=== PATIENT | female | born 1975 | race Caucasian/White ===

== ENCOUNTER 2023-05-18 19:55 | Emergency (ER) | payer MEDICARE, SELFPAY ==
[2023-05-18 19:57] VITALS: BP 166/110
[2023-05-18] MEDS: PERCOCET 5/325 2 TABLET PO (21:22)
--- NOTE | 2023-05-18 22:56 | ED.GENMED ---
History of Present Illness
General
Chief Complaint: Skin Problem
Source: patient
Exam Limitations: none
Time Seen by Provider: 05/18/23 20:50
Nursing documentation reviewed up to this point in time: agreed with
Travel History
Have you had any contact with someone who has COVID-19?: No
Do you have any symptoms of coronavirus? Fever > 100 degrees, chills, cough, shortness of breath, sore throat, loss of taste or smell, muscle aches, or headache?: No
History of Present Illness
History of Present Illness:
47-year-old female with past medical history of hypertension ADHD presenting to the emergency department today with concerns of a lump on her left upper back worsening over the past few days has been present for 20 years but the redness swelling and
discomfort have been over the past few days. Denies any systemic symptoms or fevers.
Past History
Past History
ED Past Medical History: None
Social History
Tobacco: Smoker
Drug: None
Review of Systems
Review of Systems
Allergies reviewed?: Yes
All Other Systems: ROS reviewed and negative except as documented in HPI and ROS
Phy Exam
Physical Exam
Physical Exam:
GENERAL: Alert , in no apparent distress
EYE: pupils equal and reactive
NECK: Supple, no significant adenopathy.
ENT: o/p clr, mmm.
CARDIAC: Regular rate and rhythm .
LUNGS: Clear breath sounds bilaterally, no acute respiratory distress, no wheezes/rales/rhonchi
ABDOMEN: Soft, without focal tenderness, no r/g, no cvat
NEUROLOGICAL: Alert and oriented, no focal neuro deficits
SKIN: 3 cm area of fluctuance and induration to the left upper back. Warm and dry, skin intact.
MUSCULOSKELETAL: No edema, well perfused.
PSYCH: Normal and appropriate interaction.
Course
Orders/Labs/Results
Orders:
Orders
05/18/23 21:14
Oxycodone/Acetaminophen [Percocet 5/325] 2 tablet PO NOW STA
Vital Signs
Initial and Last Documented VS:
Initial Vital Signs
Temp Pulse Resp BP Pulse Ox
98.0 F 68 18 166/110 99
05/18/23 19:57 05/18/23 19:57 05/18/23 19:57 05/18/23 19:57 05/18/23 19:57
Last Documented Vital Signs
Temp Pulse Resp BP Pulse Ox
98.0 F 68 18 166/110 99
05/18/23 19:57 05/18/23 19:57 05/18/23 19:57 05/18/23 19:57 05/18/23 19:57
Procedures
Incision/Drainage/Joint Aspiration
Left Upper Back:
Anethesia: 1% Lidocaine with Epi
Preparation: cleaned with alcohol wipe
Type of procedure: incise and drain
Nature of site: cyst
Description of abscess: greater than 3cm
Loculations broken up: Yes
How much fluid was obtained?: large amount
Fluid description: purulent (Mixed with keratinous material)
Treatment: left open for drainage
MDM/Problems Addressed
MDM/Problems Addressed:
47-year-old female presenting to the emergency department today with concerns of an infected cyst to left upper back. This was drained with a moderate amount of purulent material. Patient was started on Bactrim otherwise stable for outpatient
management no systemic symptoms. Return precautions given.
*Critical Care Note
Total Time (30-74mins, 75-104mins- exclusive of procedures): Not Applicable
ED Attending Note
-
Portions of this chart may have been created with voice recognition software.� Occasional wrong word or��sound alike� substitutions may have occurred due to the inherent limitations of voice recognition software.
Discharge Plan
Departure
Patient Disposition: Home (Routine Discharge)
Date of Disposition: 05/18/23
Time of Disposition: 23:16
Patient with high blood pressure during this ER visit?: No
Condition: Good
Covid-19: Not Applicable
Discharge Problem:
Infected cyst of skin
Instructions: Skin Abscess
Prescriptions:
New
sulfamethoxazole-trimethoprim [Bactrim DS] 800-160 mg tablet
2 tab PO BID 5 Days Qty: 20 0RF
No Action
dextroamphetamine-amphetamine [Adderall XR] 20 MG capsule,extended release 24hr
20 mg PO DAILY
dextroamphetamine-amphetamine [Adderall] 20 MG tablet
20 mg PO DAILY
ciprofloxacin HCl 500 MG tablet
500 mg PO BID Qty: 14 0RF
prednisone 10 MG tablet
10 mg PO .TAPER Qty: 30 0RF
Rx Instructions:
Take 40mg daily x3days, 30mg daily x3days,
20mg daily x3days, 10mg daily x3days.
ondansetron 4 MG tablet,disintegrating
4 mg PO TIDPRN PRN (Reason: vomiting) Qty: 10 0RF
Referrals:
NONE,* [Family Provider] -
Fredy Rodriguez MD [Active] - Follow up in 5-7 days
Activity Restrictions/Additional Instructions:
You came to the emergency department today with concerns of an infected cyst to your left upper back. This was drained here with a large amount of pus and additional material being removed. Please keep the area clean covered and take Bactrim 2
pills twice daily for the next 5 days and follow-up closely with surgery or dermatology for definitive cyst removal. Return to the emergency department for any worsening, new or concerning symptoms.
Interventions
Interventions:
*Risk Screen - Suicide Last Done: 05/18/23 23:02
*General Assessment Last Done: 05/18/23 23:02
*Neglect/Abuse Screening Last Done: 05/18/23 23:02
ED- Fall Risk Assessment Last Done: 05/18/23 23:02
*ED COVID-19 Vaccine History Last Done: 05/18/23 23:02
ED-Skin Assessment Last Done: 05/18/23 21:27
[2023-05-18] MEDS: BACTRIM DS 800 MG/160 MG 2 TABLET PO (23:20)
== END 2023-05-18 23:23 | disposition home or self-care (01) ==
LOC: EMR 19:55
PROVIDERS: EMERGENCY PHYSICIAN Student in an Organized Health Care Education/Training Program
DX: L08.9 Local infection of the skin and subcutaneous tissue, unspecified (principal); L72.9 Follicular cyst of the skin and subcutaneous tissue, unspecified; I10 Essential (primary) hypertension; F90.9 Attention-deficit hyperactivity disorder, unspecified type; F17.200 Nicotine dependence, unspecified, uncomplicated
CPT/HCPCS: 99282; 10060

== ENCOUNTER 2023-08-19 20:01 | Emergency (ER) | payer MEDICARE, SELFPAY ==
[2023-08-19 20:05] VITALS: BP 155/100
[2023-08-19 20:21] LABS: % Basophils 0.4 % (0-2); % Eosinophils 1.6 % (0-6); % Immature Granulocytes 0.3 % (0-0.5); % Lymphocytes 23.3 % (20.5-51.1); % Monocytes 7.5 % (1.7-9.3); % Neutrophils 66.9 % (42.2-75.2); Absolute Basophils 0.1 10^3/uL (0-0.2); Absolute Eosinophils 0.2 10^3/uL (0-0.7); Absolute Lymphocytes 2.8 10^3/uL (1.2-3.4); Absolute Monocytes 0.9 10^3/uL (0.1-0.6); Hematocrit 39.3 % (37.0-47.0); Hemoglobin 12.7 g/dL (12.0-16.0); Mean Corp Hgb Conc. 32.3 g/dL (33.0-37.0); Mean Corpuscular Hgb 30.1 pg (27.0-31.0); Mean Corpuscular Volume 93.1 fL (81.0-99.0); Nucleated Red Blood Cells % 0 %; Platelet Count 313 10^3/uL (130-400); Red Blood Cell Count 4.22 10^6/uL (4.20-5.40); Red Cell Dist. Width 13.3 % (11.5-14.5)
[2023-08-19 20:42] LABS: ALT (SGPT) 12 U/L (0-35); AST (SGOT) 18 U/L (14-36); Albumin 3.7 g/dl (3.5-5.0); Alkaline Phosphatase 92 U/L (38-126); Blood Urea Nitrogen 14 mg/dl (7-17); Calcium 8.9 mg/dl (8.4-10.2); Carbon Dioxide 29 mmol/L (22-30); Chloride 105 mmol/L (98-107); Glucose 127 mg/dl (70-99); Potassium 4.5 mmol/L (3.5-5.1); Sodium 139 mmol/L (135-145); Total Bilirubin 0.4 mg/dl (0.2-1.3); eGFR > 60.00
[2023-08-19 20:46] LABS: Troponin I < 0.012 ng/ml
--- NOTE | 2023-08-19 21:30 | ED.GENMED ---
History of Present Illness
General
Chief Complaint: Blood Pressure Problem
Source: patient
Exam Limitations: none
Time Seen by Provider: 08/19/23 21:03
Travel History
Have you had any contact with someone who has COVID-19?: No
Do you have any symptoms of coronavirus? Fever > 100 degrees, chills, cough, shortness of breath, sore throat, loss of taste or smell, muscle aches, or headache?: No
History of Present Illness
History of Present Illness:
This is a 47 year old female that comes in with c/o SOB and hypertension. State that she feels like she can't get enough air in. States that they then checked her BP at home and at first it was 181/110 and then later it was 197/122. States that she
was sweating. States that she was told once that she had the starting of COPD but she did not believe them. Denies any fever, chills, chest pain, abd pain, nausea, vomiting, diarrhea, headache, dizziness, urinary burning.
Past History
Past History
ED Past Medical History: HTN and Other (UTI, ADHD, Kidney stones)
ED Past Surgical History: Cholecystectomy, Gynecological (Tubal, Breast implants) and Other (Left arm surgery)
Social History
Tobacco: Former smoker
Alcohol: None
Drug: None
Personal: Single
Living: with family
Review of Systems
Review of Systems
All Other Systems: ROS reviewed and negative except as documented in HPI and ROS
Constitutional: Reports other (Sweating ); Denies fever or chills
EENT: Reports no symptoms
Respiratory: Reports trouble breathing; Denies cough
Cardiac: Reports no symptoms; Denies chest pain
ABD/GI: Reports no symptoms; Denies abdominal pain, nausea, vomiting or diarrhea
: Reports no symptoms; Denies dysuria, frequency or urgency
Musculoskeletal: Reports no symptoms
Skin: Reports no symptoms
Neurological: Reports no symptoms; Denies dizzy or headache
Psychiatric: Reports no symptoms
Phy Exam
General Physical Exam
General Presentation: well appearing and no apparent distress
General age: appears stated age
General Skin: warm and dry
General Habitus: normal
General Mental: alert
General Hydration: appears well hydrated
ENT Exam
ENT Exam: TM's normal, pharynx normal and neck supple
Eye Exam
Eye Exam: EOMI
Cardiovascular Exam
Cardiovascular Exam: regular rate/rhythm, no edema, no murmur and normal peripheral pulses
Pulmonary Exam
Pulmonary Exam: lungs clear, no respiratory distress, no rales, chest non tender, no crackles, no rhonchi, no wheezing and no cough
Gastrointestinal Exam
Gastrointestinal Exam: normal bowel sounds, non tender, soft, no organomegaly, no pulsatile mass and non distended
Musculoskeletal Exam
Musculoskeletal Exam: full ROM and no edema
Skin Exam
Skin Exam: normal color, warm/dry, no rash and no petechia
Psychiatric Exam
Psychiatric Exam: normal mood/affect
Course
Orders/Labs/Results
Orders:
Orders
08/19/23 20:02
EKG [Electrocardiogram (*1)] Urgent
Reason for Study: Chest Pain
Electrocardiogram (*1) Urgent
Reason for Study: Chest Pain
EKG- Treatment ONCE
EKG- Treatment ONCE
08/19/23 20:15
CMP [Comprehensive Metabolic Panel] Urgent
Complete Blood Count/With Diff Urgent
Troponin I Urgent
08/19/23 21:29
Lisinopril [Zestril] 10 mg PO NOW STA
CR Chest - 2 Views Urgent
Comment:
Reason For Exam: SOB
08/19/23 21:31
Ipratropium/Albuterol Sulfate [Duoneb] 3 ml INH R NOW ONE
08/19/23 21:52
D-Dimer Urgent
Abnormal Lab Results
08/19/23
20:15
WBC 12.0 H 10^3/uL
(4.8-10.8)
MCHC 32.3 L g/dL
(33.0-37.0)
MPV 11.0 H fL
(7.4-10.4)
Absolute Neuts (auto) 8.0 H 10^3/uL
(1.4-6.5)
Absolute Monos (auto) 0.9 H 10^3/uL
(0.1-0.6)
Glucose 127 H mg/dl
(70-99)
08/19/23 20:15
08/19/23 20:15
Leukocytosis, Glucose nonfasting. Troponin <0.012, D-dimer 0.35
Vital Signs
Initial and Last Documented VS:
Initial Vital Signs
Temp Pulse Resp BP Pulse Ox
98.1 F 98 22 155/100 98
08/19/23 20:05 08/19/23 20:05 08/19/23 20:05 08/19/23 20:05 08/19/23 20:05
Last Documented Vital Signs
Temp Pulse Resp BP Pulse Ox
98.1 F 98 22 153/102 98
08/19/23 20:05 08/19/23 20:05 08/19/23 20:05 08/19/23 21:45 08/19/23 20:05
MDM/Problems Addressed
Differential Diagnosis Includes:
Hypertension,
MDM/Problems Addressed:
This is a 47 year old female that comes in with c/o hypertension and feeling like she can't take a deep breath or get enough air in.
Will get labs, chest X-ray, Give Duo neb
Back into see patient. Patient state that she is feeling much better. Will place patient on Lisinopril for her BP and explained that she needs to get a family doctor. Will also give patient a prescription for albuterol inhaler to help with the chest
tightness. Explained that she may have the starting of COPD. Patient to follow up . Patient to return with any concerns.
Chronic conditions affecting care: HTN
Acute Exacerbation and/or Progression of Chronic Illness: HTN
*Radiology
Radiology exam reviewed: radiology read reviewed (Chest-Unremarkable exam)
*Pulse Oximetry
Patient hypoxic: no
*EKG
Interpreted by ED Provider?: Yes
Heart Rate: 92
Rate: normal
Rhythm: sinus
Helotes: normal axis
Interval: normal interval
QRS Pattern: normal QRS
Ischemia: no ischemia
*Keg Raiser Interpretation
Rate: normal
Heart Rate: 70
Rhythm: sinus
*Critical Care Note
Total Time (30-74mins, 75-104mins- exclusive of procedures): Not Applicable
ED Attending Note
-
Portions of this chart may have been created with voice recognition software.� Occasional wrong word or��sound alike� substitutions may have occurred due to the inherent limitations of voice recognition software.
Discharge Plan
Departure
Patient Disposition: Home (Routine Discharge)
Date of Disposition: 08/19/23
Time of Disposition: 22:48
Patient with high blood pressure during this ER visit?: Yes
Condition: Good
Covid-19: Not Applicable
Discharge Problem:
Hypertension, SOB (shortness of breath)
Instructions: Shortness of Breath (Dyspnea) (DC), BLOOD PRESSURE
Prescriptions:
New
lisinopril 10 mg tablet
10 mg PO DAILY Qty: 30 0RF
albuterol sulfate 90 mcg/actuation HFA aerosol inhaler
2 puff inhalation Q6H PRN (Reason: shortness of breath or wheezing) Qty: 6.7 0RF
No Action
dextroamphetamine-amphetamine [Adderall XR] 20 MG capsule,extended release 24hr
20 mg PO DAILY
dextroamphetamine-amphetamine [Adderall] 20 MG tablet
20 mg PO DAILY
ciprofloxacin HCl 500 MG tablet
500 mg PO BID Qty: 14 0RF
prednisone 10 MG tablet
10 mg PO .TAPER Qty: 30 0RF
Rx Instructions:
Take 40mg daily x3days, 30mg daily x3days,
20mg daily x3days, 10mg daily x3days.
ondansetron 4 MG tablet,disintegrating
4 mg PO TIDPRN PRN (Reason: vomiting) Qty: 10 0RF
sulfamethoxazole-trimethoprim [Bactrim DS] 800-160 mg tablet
2 tab PO BID 5 Days Qty: 20 0RF
Referrals:
UNKNOWN - PT DOES,NOT KNOW [Family Provider] -
Activity Restrictions/Additional Instructions:
As discussed, your blood work shows that your WBC are slightly elevated. This can go along with stress or a viral illness. Your Chest x-ray is negative for any acute process. You have had 2 prescriptions sent to your Pharmacy. The first is
Lisinopril to help control your blood pressure. Please take as directed. The second is an albuterol inhaler to help with any chest tightness or wheezing. YOU NEED TO GET A FAMILY DOCTOR. Please increase your water intake to 8-8oz glasses daily. IF
YOU HAVE INCREASED SHORTNESS OF BREATH, OR YOU HAVE ANY CONCERNS PLEASE RETURN TO THE EMERGENCY ROOM.
Interventions
Interventions:
*Risk Screen - Suicide Last Done: 08/19/23 20:05
*Neglect/Abuse Screening Last Done: 08/19/23 20:05
Discharge Date and Time
Print Language: TELUGU
[2023-08-19] MEDS: DUONEB 3 ML INH (21:45)
[2023-08-19] MEDS: ZESTRIL 10 MG PO (21:45)
[2023-08-19 22:14] LABS: D-Dimer 0.35 ug/mlFEU (0.00-0.50)
== END 2023-08-19 23:19 | disposition home or self-care (01) ==
LOC: EMR 20:01
PROVIDERS: Clinical Nurse Specialist Family Health; Emergency Medicine; EMERGENCY PHYSICIAN Student in an Organized Health Care Education/Training Program
DX: I10 Essential (primary) hypertension (principal); R06.02 Shortness of breath; R61 Generalized hyperhidrosis; R07.89 Other chest pain; F90.9 Attention-deficit hyperactivity disorder, unspecified type; Z87.891 Personal history of nicotine dependence; Z87.440 Personal history of urinary (tract) infections; Z87.442 Personal history of urinary calculi; Z90.49 Acquired absence of other specified parts of digestive tract; Z88.1 Allergy status to other antibiotic agents
CPT/HCPCS: 99283; 94640; 71046; 80053; 84484; 85025; 85379; 93005

== ENCOUNTER 2024-12-28 09:34 | Emergency (ER) | payer MEDICARE, SELFPAY ==
[2024-12-28 09:35] VITALS: BP 147/97
[2024-12-28 11:12] VITALS: BP 146/89
[2024-12-28] MEDS: NSS 1000 IV (11:29)
--- NOTE | 2024-12-28 11:40 | ED.GENMED ---
History of Present Illness
General
Chief Complaint: Abdominal Symptoms
Source: patient
Time Seen by Provider: 12/28/24 11:32
History of Present Illness
History of Present Illness:
49-year-old female with past medical history of hypertension presenting to the emergency department for evaluation of nausea and vomiting that started overnight, subsequently developed mild headache, unable to keep anything down other than some
small amounts of fluid. 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 She denies any fevers, chills, rigors, no recent antibiotics. No other symptoms presently.
She did not take anything for her symptoms prior to arrival.
Past History
Past History
ED Past Medical History: HTN and Other (UTI, ADHD, Kidney stones)
ED Past Surgical History: Cholecystectomy, Gynecological (Tubal, Breast implants) and Other (Left arm surgery)
Social History
Tobacco: Vaping
Alcohol: None
Drug: None
Personal: Single
Living: with family
Review of Systems
Review of Systems
All Other Systems: ROS reviewed and negative except as documented in HPI and ROS
Phy Exam
Physical Exam
Physical Exam:
GENERAL: Alert , in no apparent distress
EYE: clear conjunctiva b/l
HEAD: NCAT
ENT: mmm.
CARDIAC: Regular rate and rhythm .
LUNGS: Clear breath sounds bilaterally, no acute respiratory distress, no wheezes/rales/rhonchi
ABDOMEN: Soft, without focal tenderness, no r/g, no cvat
NEUROLOGICAL: Alert and oriented
SKIN: Warm and dry, skin intact.
MUSCULOSKELETAL: well perfused.
PSYCH: Normal and appropriate interaction.
Scores
Heart Failure Risk
Heart Failure Risk Score: Not Applicable
Heart Score for Chest Pain Patients
STEMI patient?: Not applicable
Withdrawal Assessment of Alcohol
Withdrawal Assessment Completed?: Not applicable
Course
Orders/Labs/Results
Orders:
Orders
12/28/24 11:26
Test Result ONCE
12/28/24 11:27
Complete Blood Count/With Diff Urgent
Comprehensive Metabolic Panel Urgent
HCG, Serum Qualitative Screen Urgent
Lipase Urgent
12/28/24 11:28
0.9% Sodium Chloride 1000 ml [Nss] 1,000 ml IV BOLUS
12/28/24 11:35
Ketorolac [Toradol] 30 mg IV NOW STA
Ondansetron Injectable [Zofran] 4 mg IV NOW STA
Abnormal Lab Results
12/28/24
11:27
MPV 11.4 H fL
(7.4-10.4)
Absolute Neuts (auto) 7.9 H 10^3/uL
(1.4-6.5)
Absolute Lymphs (auto) 0.7 L 10^3/uL
(1.2-3.4)
Neutrophils % 86.2 H %
(42.2-75.2)
Lymphocytes % 7.5 L %
(20.5-51.1)
12/28/24 11:27
12/28/24 11:27
Vital Signs
Initial and Last Documented VS:
Initial Vital Signs
Temp Pulse Resp BP Pulse Ox
99.0 F 95 18 147/97 100
12/28/24 09:35 12/28/24 09:35 12/28/24 09:35 12/28/24 09:35 12/28/24 09:35
Last Documented Vital Signs
Temp Pulse Resp BP Pulse Ox
99.0 F 80 18 146/89 100
12/28/24 09:35 12/28/24 11:12 12/28/24 11:12 12/28/24 11:12 12/28/24 11:45
MDM/Problems Addressed
Differential Diagnosis Includes:
Gastroenteritis
GERD
Gastritis
Peptic ulcer disease
Dehydration
MDM/Problems Addressed:
49-year-old female presenting to the emergency department for evaluation of nausea and vomiting over the last 12 hours, difficult time keeping solids and liquids down. No fevers but known sick contacts with similar symptoms within the week.
Suspect gastroenteritis is most likely diagnosis. Labs initiated. Will treat with fluids, Zofran and Toradol. Reassessment following.
*Pulse Oximetry
SaO2: 100
Oxygen Mode of Delivery: Room air
Patient hypoxic: no
*Critical Care Note
Total Time (30-74mins, 75-104mins- exclusive of procedures): Not Applicable
Patient Management
Escalation/DeEscalation of care consider admission/obs:
Patient feeling better following IV medications. Stable for discharge home. Brat diet advised. Aware of return precautions to the ER
ED Attending Note
-
Portions of this chart may have been created with voice recognition software.� Occasional wrong word or��sound alike� substitutions may have occurred due to the inherent limitations of voice recognition software.
Discharge Plan
Departure
Patient Disposition: Home (Routine Discharge)
Date of Disposition: 12/28/24
Time of Disposition: 13:12
Patient with high blood pressure during this ER visit?: Yes
Discharge Problem:
Nausea and vomiting
Instructions: Nausea and Vomiting, Adult (DC)
Prescriptions:
New
ondansetron 4 mg tablet,disintegrating
4 mg PO TIDPRN PRN (Reason: nausea/vomiting) Qty: 10 0RF
No Action
dextroamphetamine-amphetamine [Adderall XR] 20 MG capsule,extended release 24hr
20 mg PO DAILY
dextroamphetamine-amphetamine [Adderall] 20 MG tablet
20 mg PO DAILY
ciprofloxacin HCl 500 MG tablet
500 mg PO BID Qty: 14 0RF
prednisone 10 MG tablet
10 mg PO .TAPER Qty: 30 0RF
Rx Instructions:
Take 40mg daily x3days, 30mg daily x3days,
20mg daily x3days, 10mg daily x3days.
ondansetron 4 MG tablet,disintegrating
4 mg PO TIDPRN PRN (Reason: vomiting) Qty: 10 0RF
sulfamethoxazole-trimethoprim [Bactrim DS] 800-160 mg tablet
2 tab PO BID 5 Days Qty: 20 0RF
lisinopril 10 mg tablet
10 mg PO DAILY Qty: 30 0RF
albuterol sulfate 90 mcg/actuation HFA aerosol inhaler
2 puff inhalation Q6H PRN (Reason: shortness of breath or wheezing) Qty: 6.7 0RF
Referrals:
UNKNOWN - PT DOES,NOT KNOW [Family Provider]
Interventions
Interventions:
*Risk Screen - Suicide Last Done: 12/28/24 09:35
*General Assessment Last Done: 12/28/24 09:35
*Neglect/Abuse Screening Last Done: 12/28/24 11:10
*ED- Fall Risk Assessment Last Done: 12/28/24 11:10
*ED COVID-19 Vaccine History Last Done: 12/28/24 11:10
*ED Influenza Vaccine History Last Done: 12/28/24 11:10
*Nursing Disposition Last Done: 12/28/24 13:24
K[facility]-P[facility]-[place] Assessment Last Done: 12/28/24 11:10
Discharge Date and Time
Discharge Date/Time: 12/28/24 13:24
Print Language: ICELANDIC
[2024-12-28 11:41] LABS: Hematocrit 42.4 % (37.0-47.0); Hemoglobin 14.1 g/dL (12.0-16.0); Mean Corp Hgb Conc. 33.3 g/dL (33.0-37.0); Mean Corpuscular Volume 89.5 fL (81.0-99.0); Nucleated Red Blood Cells % 0 %; Platelet Count 285 10^3/uL (130-400); Red Cell Dist. Width 13.1 % (11.5-14.5)
[2024-12-28] MEDS: TORADOL 30 MG IV (11:41)
[2024-12-28] MEDS: ZOFRAN 4 MG IV (11:41)
[2024-12-28 11:56] LABS: HCG, Serum Qualitative Screen Negative
[2024-12-28 12:00] LABS: ALT (SGPT) 19 U/L (0-35); AST (SGOT) 24 U/L (14-36); Albumin 4.3 g/dl (3.5-5.0); Alkaline Phosphatase 80 U/L (38-126); Blood Urea Nitrogen 13 mg/dl (7-17); Calcium 9.4 mg/dl (8.4-10.2); Carbon Dioxide 25 mmol/L (22-30); Chloride 106 mmol/L (98-107); Glucose 96 mg/dl (70-99); Lipase 46 U/L (23-300); Potassium 4.3 mmol/L (3.5-5.1); Sodium 138 mmol/L (135-145); Total Protein 8.1 g/dl (6.3-8.2); eGFR > 60.00
== END 2024-12-28 13:24 | disposition home or self-care (01) ==
LOC: EMR 09:34
PROVIDERS: EMERGENCY PHYSICIAN Student in an Organized Health Care Education/Training Program
DX: R11.2 Nausea with vomiting, unspecified (principal); I10 Essential (primary) hypertension; F90.9 Attention-deficit hyperactivity disorder, unspecified type; F17.290 Nicotine dependence, other tobacco product, uncomplicated; Z87.440 Personal history of urinary (tract) infections; Z87.442 Personal history of urinary calculi; Z90.49 Acquired absence of other specified parts of digestive tract; Z98.82 Breast implant status
CPT/HCPCS: 99283; 96374; 96375; 96361; 80053; 83690; 84703; 85025